=== PATIENT | female | born 1965 | race Caucasian/White ===

== ENCOUNTER → 2023-07-11 | Outpatient (CLI) | payer OTHER, SELFPAY ==
[2023-07-14 13:07] LABS: HPV APTIMA, High Risk Negative (Negative)
== END | disposition home or self-care (01) ==
LOC: LABSPEC 10:24
PROVIDERS: PCP Family Medicine; Referring Provider Obstetrics & Gynecology; Visit Provider Obstetrics & Gynecology
DX: Z12.4 Encounter for screening for malignant neoplasm of cervix (principal)
CPT/HCPCS: 87624; 88175; G0145

== ENCOUNTER → 2023-07-18 | Outpatient (CLI) | payer OTHER, SELFPAY ==
--- NOTE | 2023-07-18 07:41 | BI_ITS ---
MAMMOGRAPHY - BILATERAL SCREENING REASON FOR EXAM: Female, 58 years old. Routine annual screening examination. PERTINENT HISTORY: Non-contributory. TECHNIQUE: Digital bilateral breast tc (3D mammographic acquisition) in the CC and MLO projections. 2-D mediolateral oblique (MLO) and craniocaudad (CC) views of both breasts were obtained. CAD: Full Field Digital Mammography with Computer Added Detection was performed. COMPARISON: Comparison is made with prior examination dated January 04, 2022. FINDINGS: Breast Composition: The breasts are extremely dense, which lowers the sensitivity of mammography. There are no dominant masses or suspicious calcifications. No other significant abnormalities are identified. There has been no significant change since the prior study. BI/SCRN MAMM (CAD)W/TC BILAT IMPRESSION: Stable bilateral screening mammogram. Yearly follow-up mammogram recommended. (A) ASSESSMENT CATEGORY: BIRADS Category 1: Negative. A letter regarding these results will be sent to the patient by the facility within 30 days. Approximately 10% of breast cancers are not detected by mammography. A normal mammogram should not delay biopsy of a clinically suspicious abnormality. [id number] Electronically Signed: Francis Delgado MD at 14:19 EST ,
--- OUTSIDE RECORDS SUMMARY | 2023-07-18 08:01 | XMS RPT_ITS | CCD ---
Author Name Unknown Address [address] [place] [address] Organization [facility] Care Team Providers Care Sales Marketing Coordinator Name Role Phone Artur Avilez Unavailable Unavailable Artur Avilez Unavailable Unavailable Amari Mccollum Unavailable Unavailable ARTUR AVILEZ N Unavailable Unavailable Anmol Tabor Unavailable Unavailable Artur Avilez N Unavailable Unavailable Unknown, Referring Provider Unavailable Unav ailable Derek Fontenot MD Unavailable [place], Mallorie Unavailable Unavailabl e Neo, Mallorie C Unavailable Unavaila ble Artur Avilez N Unavailable Unavailable [place], Mallorie C Unavailable Unavailable Unavailable Neo DO, Mallorie C Primary Care Provider Neo DO, Mallorie C Unavailable [phone] Nayla Lizarraga MD Unavailable NEO MALLORIE C Attending Unavaila ble NEO MALLORIE C Primary Care Unavaila ble Allergies Allergy Classification Reported Allergen(s) Allergy Type Date of Onset Reaction(s) Facility (1 source) Seasonal allergy; Translations: [SEASONAL] allergy to substance 0 [facility] Work Phone: Medications Current Medications Medication Drug Class(es) Dates Sig (Normalized) Sig (Original) DULoxetine 30 mg delayed release oral capsule (5 sources) Serotonin and Norepinephrine Reuptake Inhibitor Start: 12-03-2020 End: 10-26-2022 take 1 capsule by mouth twice daily DULoxetine (Cymbalta) [address] capsule Take 1 capsule (30 mg) by mouth 2 times a day. 0 12/03/2020 10/26/2022 Discontinued (Therapy completed) Completed/Discontinued Medications Medication Drug Class(es) Dates Sig (Normalized) Sig (Original) augmented betamethasone 0.5 mg/ml topical cream (1 source) Corticosteroid Start: 01-29-2019 Betamethasone Dipropionate Aug 0.05 % External Cream APPLY AND RUB IN A THIN FILM TO AFFECTED AREAS TWICE DAILY.(AM AND PM). Quantity: 30 Refills: 0 Anmol Tabor MD Start : 29-Jan-2019 Active Problems Active Problems Problem Classification Problem Date Documented Da te Episodic/Chronic Diseases of white blood cells (6 sources) Leukopenia; Translations: [Leukocytopenia, unspecified] Onset: 10-25-2022 10-25-2022 Chronic Disorders of lipid metabolism (9 sources) Hyperlipidemia; Translations: [Other and unspecified hyperlipidemia] Onset: 10-25-2022 10-26-2022 Chronic Malaise and fatigue (7 sources) Fatigue; Translations: [Other malaise and fatigue] Episodic Mood disorders (2 sources) Major depressive disorder, single episode, unspecified; Translations: [Major depressive disorder, single episode, unspecified] Onset: 05-31-2017 Osteoarthritis (14 sources) Primary osteoarthritis, right hand; Translations: [Degenerative joint disease of hand] Onset: 01-17-2020 01-17-2020 Chronic Other and unspecified benign neoplasm (9 sources) History of polyp of colon; Translations: [Personal history of colonic polyps] Onset: 10-25-2022 10-26-2022 Episodic Other and unspecified benign neoplasm (2 sources) Personal history of colonic polyps; Translations: [Personal history of colonic polyps] Onset: 10-25-2022 Episodic Other connective tissue disease (6 sources) Muscle pain; Translations: [Myalgia and myositis, unspecified] Episodic Other connective tissue disease (1 source) Pain of left hand; Translations: [Pain in left hand] 10-26-2022 Episodic Other connective tissue disease (2 sources) Pain in left hand; Translations: [Pain in left hand] Onset: 10-26-2022 Episodic Other non-epithelial cancer of skin (1 source) Basal cell carcinoma of skin; Translations: [Basal cell carcinoma of skin, unspecified] Onset: 10-26-2022 10-26-2022 Episodic Other skin disorders (3 sources) Acne vulgaris; Translations: [Other acne] Episodic Other skin disorders (1 source) Acne; Translations: [Acne vulgaris] Onset: 10-25-2022 10-25-2022 Episodic Other upper respiratory disease (2 sources) Allergic rhinitis, unspecified; Translations: [Allergic rhinitis, unspecified] Onset: 05-31-2017 Chronic Residual codes; unclassified (7 sources) Past history of procedure; Translations: [Other specified personal history presenting hazards to health] Episodic Past or Other Problems Problem Classification Problem Date Documented Date Episodic/Chronic Allergic reactions (8 sources) Contact dermatitis due to Genus Toxicodendron; Translations: [Contact dermatitis and other eczema due to plants [except food]] Resolved: 02-06-2020 Episodic Anxiety disorders (10 sources) Anxiety disorder, unspecified; Translations: [Mixed anxiety and depressive disorder] Onset: 05-31-2017 Resolved: 10-26-2022 10-26-2022 Chronic Genitourinary symptoms and ill-defined conditions (2 sources) Frequency of micturition; Translations: [Frequency of micturition] Onset: 05-31-2017 Episodic Immunizations and screening for infectious disease (7 sources) Anti-nuclear factor positive; Translations: [Other and unspecified nonspecific immunological findings] Resolved: 06-30-2020 Episodic Mood disorders (5 sources) Moderate major depression, single episode; Translations: [Major depressive affective disorder, single episode, moderate] Onset: 10-25-2022 Resolved: 10-26-2022 10-26-2022 Chronic Residual codes; unclassified (8 sources) Sleep disorder; Translations: [Sleep disturbance, unspecified] Onset: 10-25-2022 Resolved: 10-25-2022 10-25-2022 Episodic Unclassified (2 sources) Family history of ischemic heart disease and other diseases of the circulatory system; Translations: [Family hx of ischem heart dis and oth dis of the circ sys] Onset: 05-31-2017 Episodic Unclassified (1 source) Problem Unclassified (2 sources) Cancer cervix screening status; Translations: [Screening for cervical cancer] Unclassified (1 source) Patient encounter status; Translations: [Screening for hyperlipidemia] Urinary tract infections (11 sources) Acute cystitis with hematuria; Translations: [Urinary tract infectious disease] Onset: 05-31-2017 Resolved: 02-06-2020 Episodic NEGATED: Highlighted row has not occurred!Residual codes; unclassified (7 sources) Disease Episodic Results Test Name Value Interpretation Reference Range Facil ity Vital Signs Date Time Vital Sign Value Performing Clinician Facility 10-26-2022 08:33-0400 Body height 167.6 cm Mallorie Nationhael DO Work Phone: [facility] 10-26-2022 08:33-0400 Body mass index (BMI) [Ratio] 22.97 kg/m2 Mallorie Buenomichael DO Work Phone: [facility] 10-26-2022 08:33-0400 Body temperature 98.8 [degF] Mallorie Nationhael DO Work Phone: [facility] 10-26-2022 08:33-0400 Body weight 64.55 kg Mallorie Nationhael DO Work Phone: [facility] 10-26-2022 08:33-0400 Diastolic blood pressure 61 mm[Hg] Mallorie Nationhael DO Work Phone: [facility] 10-26-2022 08:33-0400 Heart rate 86 /min Mallorie Nationhael DO Work Phone: [facility] 10-26-2022 08:33-0400 Respiratory rate 14 /min Mallorie Nationhael DO Work Phone: [facility] 10-26-2022 08:33-0400 SaO2% (BldA) [Mass fraction] 98 % Mallorie Nationhael DO Work Phone: [facility] 10-26-2022 08:33-0400 Systolic blood pressure 89 mm[Hg] Mallorie Neo DO Work Phone: [facility] 12-03-2020 14:31-0400 Body mass index (BMI) [Ratio] 19.96 kg/m2 Mallorie Stafford Neo Work Phone: [facility] Work Phone: 12-03-2020 14:31-0400 Body surface area Derived from formula 1.71 m2 Mallorie C Neo Work Phone: [facility] Work Phone: 12-03-2020 14:31-0400 Body temperature 97.5 [degF] Mallorie C Neo Work Phone: [facility] Work Phone: 12-03-2020 14:31-0400 Body weight 59.54 kg Mallorie C [place] Work Phone: [facility] Work Phone: 12-03-2020 14:31-0400 Diastolic blood pressure 62 mm[Hg] Mallorie C [place] Work Phone: [facility] Work Phone: 12-03-2020 14:31-0400 Heart rate 65 /min Mallorie C [place] Work Phone: [facility] Work Phone: 12-03-2020 14:31-0400 Respiratory rate 14 /min Mallorie C [place] Work Phone: [facility] Work Phone: 12-03-2020 14:31-0400 SaO2% (BldA) [Mass fraction] 97 % Mallorie C Neo Work Phone: [facility] Work Phone: 12-03-2020 14:31-0400 Systolic blood pressure 107 mm[Hg] Mallorie C [place] Work Phone: [facility] Work Phone: 01-29-2019 13:05-0400 BMI (Body Mass Index) 23.49 kg/m2 Anmol Tabor [facility] Work Phone: 01-29-2019 13:05-0400 Body Temperature 98.1 [degF] Anmol Tabor [facility] Work Phone: 01-29-2019 13:05-0400 Body weight 68.04 kg Anmol Tabor [facility] Work Phone: 01-29-2019 13:05-0400 BP Diastolic 76 mm[Hg] Anmol Tabor [facility] Work Phone: 01-29-2019 13:05-0400 BP Systolic 112 mm[Hg] Anmol Tabor [facility] Work Phone: 01-29-2019 13:05-0400 BSA (Body Surface Area) 1.79 m2 Anmol Tabor [facility] Work Phone: 01-29-2019 13:05-0400 Height 170.18 cm Anmol Tabor [facility] Work Phone: 01-29-2019 13:05-0400 Pulse (Heart Rate) 55 /min Anmol Tabor [facility] Work Phone: 01-29-2019 13:05-0400 Pulse Oximetry 99 % Anmol Tabor [facility] Work Phone: 01-29-2019 13:05-0400 Respiratory Rate 16 /min Anmol Tabor [facility] Work Phone: NEGATED: Highlighted [id number] 07:45-0400 BMI (Body Mass Index) 21.06 kg/m2 Carmita Gamble LPN [facility] Work Phone: NEGATED: Highlighted [id number] 07:45-0400 Body weight 59.88 kg Carmita Gamble LPN [facility] Work Phone: NEGATED: Highlighted [id number] 07:45-0400 Body weight 60 kg Carmita [place] OFFICE CASHIER [facility] Work Phone: NEGATED: Highlighted [id number] 07:45-0400 Height 168.91 cm Carmita Gamble LPN [facility] Work Phone: NEGATED: Highlighted [id number] 07:45-0400 Height 169 cm Carmita Gamble LPN [facility] Work Phone: Encounters Encounter Date Encounter Type Care Provider Facility Start: 10-26-2022 End: 10-26-2022 ambulatory MALLORIE LARSON [facility] Amb[facility] Start: 10-26-2022 End: 10-26-2022 Encounter for general adult medical examination without abnormal findings MALLORIE Stafford NEO [facility] Start: 10-26-2022 End: 10-26-2022 Patient encounter procedure Mallorie Larson DO Work Phone: [facility] Work Phone: Start: 10-26-2022 End: 10-26-2022 Periodic preventive med est patient 40-64yrs Mallorie Larson DO Work Phone: [facility] Procedures Date Procedure Procedure Detail Performing Clinician Start: 01-04-2022 Mammography Mallorie Larson DO Work Phone: Start: 06-24-2020 Lipid 1996 panel - S ishmael or Plasma Mallorie Larson DO Work Phone: Start: 05-27-2020 Follow-up visit Start: 04-09-2020 25 hydroxy includes fractions if performed Mallorie Larson Start: 04-09-2020 Antinuclear antibodi es chanel Mallorie Bowenl Start: 04-09-2020 Blood count complete auto&auto difrntl wbc Mallorie Larson Start: 04-09-2020 C-reactive protein Varsha erannie Bowenl Start: 04-09-2020 Comprehensive metabo lic 2000 panel Mallorie Bowenl Start: 04-09-2020 Creatine kinase total K rosangela Nationhael Start: 04-09-2020 Lipid panel Mallorie Larson Start: 04-09-2020 Sedimentation rate r bc automated Mallorie Larson Start: 04-09-2020 TSH WITH REFLEX TO F REE T4 IF ABNORMAL Mallorie Larson Start: 01-17-2020 End: 01-17-2020 Blood pressure screening not performed - reason not given Derek Fontenot MD Work Phone: Start: 01-17-2020 End: 01-17-2020 BMI documented within normal parameters - no follow-up plan is required Derek Fontenot MD Work Phone: Start: 01-17-2020 End: 01-17-2020 Osteoarthritis symptoms and functional status not assessed Derek Fontenot MD Work Phone: Start: 01-17-2020 End: 01-17-2020 Pain assessment documented as positive - follow-up documented Derek Fontenot MD Work Phone: Start: 01-17-2020 End: 01-17-2020 Radex fingr minimum 2 views Derek Fontenot MD Work Phone: Start: 01-17-2020 End: 01-17-2020 Tobacco non-user Deerk Fontenot MD Work Phone: Start: 01-16-2020 End: 01-17-2020 Documentation of current medications Derek Fontenot MD Work Phone: Colonoscopy Mallorie [place] Dilation and curettage Melissa Larson NEGATED: Highlighted rowStart: 01-17-2020 End: 01-17-2020 Documentation of current medications Carmita Gamble LPN Plan of Treatment Date Care Activity Detail Author Start: 02-14-2029 DTaP/Tdap/Td Vaccine s (3 - Td or Tdap) DTaP/Tdap/Td Vaccines (3 - Td or Tdap) [facility] Start: 06-24-2025 Lipid panel Lipid Panel [facility] Start: 02-25-2023 Influenza vaccination Influenz a Vaccine (Season Ended) [facility] Start: 01-04-2023 Screening for malign ant neoplasm of breast Mammogram [facility] Start: 10-26-2022 End: 10-27-2023 25-hydroxyvitamin D3 [Mass/volume] in Serum or Plasma Vitamin D, Total Lab Routine Annual physical exam Expected: 10/26/2022 (Approximate), Expires: 10/27/2023 [facility] Work Phone: Immunizations Immunization Date Immunization Notes Care Provider Fa fredis 07-01-2020 zoster vaccine recombinant; Translations: [Shingrix 50 MCG Intramuscular Suspension Reconstituted] Mallorie Larson Work Phone: [facility] Work Phone: Payers Date Payer Category Payer Private Health Insurance 2015 Private Health Insurance [id number] 1965 Unknown [id number] Unknown [employer] Social History Date Type Detail Facility Start: 01-17-2020 End: 01-17-2020 Assertion Unknown if ever smoked [facility] Work Phone: Start: 10-26-2022 Never smoker Never smoker [facility] Work Phone: Functional Status Date Assessment Result Facility NEGATED: Highlighted row Functional performance Functional status health issues are not documented [facility] Work Phone: Mental Status Date Assessment Result Facility NEGATED: Highlighted row Cognitive function [Interpretation] Cognitive status health issues are not documented [facility] Work Phone: Evaluation + Plan note 10-26-2022 Assessment & Plan Note - Mallorie Larson DO - 10/26/2022 8:57 AM EDT Note Date & Type Note Facility 10-26-2022 Evaluation + Plan note Associated Problem(s): BCC (basal cell carcinoma of skin) Continue follow up with Dr. Lizarraga for skin examinations [facility] Work Phone: Note 10-26-2022 Assessment & Plan Note - Mallorie Larson DO - 10/26/2022 8:57 AM EDTAssessment & Plan Note - Mallorie Larson DO - 10/26/2022 8:56 AM EDT Note Date & Type Note Facility 10-26-2022 Miscellaneous Notes Associated Problem(s): BCC (basal cell carcinoma of skin) Continue follow up with Dr. Lizarraga for skin examinations Associated Problem(s): Osteoarthritis of hand Discussed ibuprofen 800 mg three times daily as needed Voltaren gel could also be used Xray ordered Consider orthopedic hand referral if symptoms worsen Associated Problem(s): History of colon polyps Schedule colonoscopy documented in this encounter [facility] Work Phone: Evaluation + Plan note 10-26-2022 Assessment & Plan Note - Mallorie Larson DO - 10/26/2022 8:56 AM EDT Note Date & Type Note Facility 10-26-2022 Evaluation + Plan note Associated Problem(s): Osteoarthritis of hand Discussed ibuprofen 800 mg three times daily as needed Voltaren gel could also be used Xray ordered Consider orthopedic hand referral if symptoms worsen [facility] Work Phone: Evaluation + Plan note 10-26-2022 Assessment & Plan Note - Mallorie Larson DO - 10/26/2022 8:56 AM EDT Note Date & Type Note Facility 10-26-2022 Evaluation + Plan note Associated Problem(s): History of colon polyps Schedule colonoscopy [facility] Work Phone: History of Present illness Narrative 10-26-2022 Mallorie Larson DO - 10/26/2022 8:30 AM EDT Note Date & Type Note Facility 10-26-2022 History of Present illness Narrative Subjective Patient ID: Mey Shell is a 57 y.o. female who presents for Annual Exam and Hand Pain (Both hands- but more in the left hand than the right- this has been going on for quite a few months ). HPI The patient presents for her annual wellness exam. 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 Lizarraga and Dr. Goldstein Review of Systems Constitutional: Negative for chills, fatigue and fever. HENT: Negative for congestion, ear pain and sore throat. Eyes: Negative for visual disturbance. Respiratory: Negative for cough and shortness of breath. Cardiovascular: Negative for chest pain, palpitations and leg swelling. Gastrointestinal: Negative for abdominal pain, constipation, diarrhea, nausea and vomiting. Genitourinary: Negative. Musculoskeletal: Positive for arthralgias. Skin: Negative for rash. Neurological: Negative for dizziness, weakness, numbness and headaches. Psychiatric/Behavioral: Negative. Objective BP 89/61 (BP Location: Right arm, Patient Position: Sitting, BP Cuff Size: Small adult) Pulse 86 Temp 37.1 C (98.8 F) (Temporal) Resp 14 Ht 1.676 m (5' 6 ) Wt 64.5 kg (142 lb 4.8 oz) SpO2 98% BMI 22.97 kg/m Physical Exam Constitutional: Well developed, well nourished, alert and in no acute distress. Head and Face: Normocephalic, atraumatic. Eyes: Normal external exam. Pupils equally round and reactive to light with normal accommodation and extraocular movements intact. ENT: External inspection of ears normal, tympanic membranes visualized and normal. Nasal mucosa, septum, and turbinates normal. Oral mucosa moist, oropharynx clear. Neck: Supple, no lymphadenopathy or masses. Thyroid not enlarged, no palpable nodules. Cardiovascular: Regular rate and rhythm, normal S1 and S2, no murmurs, gallops, or rubs. Radial pulses normal. No peripheral edema. No carotid bruits. Pulmonary: No respiratory distress, lungs clear to auscultation bilaterally. No wheezes, rhonchi, rales. Abdomen: Soft, nontender, nondistended, normal bowel sounds. No masses palpated. Musculoskeletal: Gait normal. Muscle strength/tone normal of all 4 extremities. Normal range of motion of all extremities. Hands: OA changes noted to DIP joints bilaterally. Joints without swelling. No erythema. Sensation intact. Radial pulses intact. Strength equal and symmetric bilaterally. Lebron test negative. Skin: Warm, well perfused, normal skin turgor and color, no lesions or rashes noted. Neurologic: Cranial nerves II-XII grossly intact. Sensation normal bilaterally. Psychiatric: Mood calm and affect normal. Assessment/Plan Problem List Items Addressed This Visit Digestive History of colon polyps Schedule colonoscopy Relevant Orders Referral to Gastroenterology Musculoskeletal Osteoarthritis of hand Discussed ibuprofen 800 mg three times daily as needed Voltaren gel could also be used Xray ordered Consider orthopedic hand referral if symptoms worsen Other Hyperlipidemia Relevant Orders Lipid Panel Other Visit Diagnoses Annual physical exam - Primary Relevant Orders CBC and Auto Differential Comprehensive Metabolic Panel Vitamin D, Total Follow Up In [facility] - PCP Pain of left hand Relevant Orders XR hand left 3+ views Mallorie Larson DO 10/26/2022 documented in this encounter [facility] Work Phone: Instructions 10-26-2022 Patient Instructions Note Date & Type Note Facility 10-26-2022 Instructions Mallorie Larson DO - 10/26/2022 8:30 AM EDT Recommendations for women annual wellness exam: Make sure screenings for cervical, breast, and colon cancer are up to date if applicable- pap smears age 21-65, discuss mammogram starting at age 40, colonoscopy at age 45, earlier if positive family history for breast or colon cancer Screen for osteoporosis with DXA bone scan starting at age 65 or sooner if risk factors present (half-way steroid use, smoking, heavy alcohol use, history of fracture, rheumatoid arthritis, low body weight, family history of hip fracture) Screening for lung cancer with low-dose CT in all adults age 50-80 who have a 20 pack-year smoking history and currently smoke or have quit within the past 15 years Follow a healthy diet (Dash diet, Mediterranean diet) Exercise 150 min/wk Maintain healthy weight (BMI < 25) Do not smoke Alcohol in moderation (up to 1 drink/day) Get enough sleep (7-8 hours/night) Make sure immunizations are up to date (influenza, pneumococcal, Tdap, shingles if age > 50) Postmenopausal women or women with osteoporosis need minimum 1,200 mg calcium and 800 IU vitamin D daily Talk to your physician if you have concerns about depression or anxiety Visit dentist twice yearly Return anytime for shingles shot #2 Ibuprofen 800 mg max 3 times daily for pain Take with food documented in this encounter [facility] Work Phone: History of Present illness Narrative 09-03-2020 Note Date & Type Note Facility 09-03-2020 History of Present illness Narrative Here to discuss fatigue -Reports generalized muscle soreness, trouble sleeping, worsening anxiety and depression past few monthsAnxiety is worse- worries about everything- work, her mom, deathMarried1 daughterHas been on prozac for past few monthsPreviously was on zoloftEnergy level lowNo motivation to do things at homeCrying easilyAlso irritableVery tiredCycle perpetuatesSleep is ok, only getting 3-4 hours per night most nights due to volume of things she has to do for home and work and caring for her mom [place] [facility] [place] - feels like its more than she should - arms and legsFibromyalgia screening was neg last viist+passive suicidal thoughts but no active ones and no plan. her dogs keep her from ever attempting self harm.Insomnia-Home sleep study was neg Feb 2020; she was going to do in lab study but reports it wasn't covered by insurance. Dr. Carter- saw him once and needs to follow back upLast visit she reported body soreness following exercise but denies generalized body soreness or prior diagnosis fibromyalgia [facility] Work Phone: Evaluation note Note Date & Type Note Facility documented in this encounter [facility] Work Phone: Reason for referral (narrative) Consultation (Routine) - Authorized Note Date & Type Note Facility Referral ID Status Reason Start Date Expiration Date V isits Requested Visits Authorized [id number] Authorized 10/26/2022 04/24/2023 1 1 * Imaging (Routine) - Authorized Specialty Diagnoses / Procedures Referred By Lisa argueta Referred To Contact Radiology Diagnoses Pain of left hand Procedures XR hand left 3+ views Mallorie Larson DO [address] [place] [address] Referral ID Status Reason Start Date Expiration Date Visits Requested Visits Authorized [id number] Authorized Perform Procedure 10/26/2022 04/24/2023 1 1 * Consultation (Routine) - Authorized Specialty Diagnoses / Procedures Referred By Lisa argueta Referred To Contact Gastroenterology Diagnoses History of colon polyps Procedures [place] OFFICE/OUTPATIENT NEW HIGH MDM 60-74 MINUTES Mallorie Larson DO [address] [place] [address] Referral ID Status Reason Start Date Expiration Date Visits Requested Visits Authorized [id number] Authorized Specialty Services Required 10/26/2022 04/24/2023 1 1 [facility] Work Phone: Summary Purpose Family History No Family History Records Found Mother Name Dates Details Family history of eosinophil ic granulomatosis with polyangiitis (EGPA)(V17.49, Z82.69) Status:Active Father Name Dates Details No pertinent family history( V49.89, Z78.9) Status:Active Mother Name Dates Details Family history of eosinophil ic granulomatosis with polyangiitis (EGPA)(V17.49, Z82.69) Status:Active Father Name Dates Details No pertinent family history( V49.89, Z78.9) Status:Active Unknown Family Member Name Dates Details No pertinent family history: Father(V49.89, Z78.9) Status:Active Family history of eosinophil ic granulomatosis with polyangiitis (EGPA): Mother(V17.49, Z82.69) Status:Active Unknown Family Member Name Dates Details No pertinent family history: Father(V49.89, Z78.9) Status:Active Family history of eosinophil ic granulomatosis with polyangiitis (EGPA): Mother(V17.49, Z82.69) Status:Active Unknown Family Member Name Dates Details No pertinent family history: Father(V49.89, Z78.9) Status:Active Family history of eosinophil ic granulomatosis with polyangiitis (EGPA): Mother(V17.49, Z82.69) Status:Active Unknown Family Member Name Dates Details No pertinent family history: Father(V49.89, Z78.9) Status:Active Family history of eosinophil ic granulomatosis with polyangiitis (EGPA): Mother(V17.49, Z82.69) Status:Active Unknown Family Member Name Dates Details No pertinent family history: Father(V49.89, Z78.9) Status:Active Family history of eosinophil ic granulomatosis with polyangiitis (EGPA): Mother(V17.49, Z82.69) Status:Active Advance Directives No Advanced Directives Records FoundNo Advanced Directives Records FoundThere may be information available, but it has not been provided by the sender.No Advanced Directives Records FoundNo Advanced Directives Records FoundNo Advanced Directives Records FoundNo Advanced Directives Records Found Chief Complaint Chief Complaint Description Start Date right small finger pain Preliminary chief co mplaint data, not yet signed by the author as of Instructions Instruction Description Start Date Completed Assessments There may be information available, but it has not been provided by the sender. Review of System There may be information available, but it has not been provided by the sender. History of Present Illness There may be information available, but it has not been provided by the sender. Additional Source Comments INFORMATION SOURCE (unrecogn ized section and content) DATE CREATED AUTHOR AUTHOR'S ORGANIZ ATION 12/29/2017 [facility] DATE CREATED AUTHOR AUTHOR'S ORGANIZ ATION 03/08/2020 [facility] DATE CREATED AUTHOR AUTHOR'S ORGANIZ ATION 12/05/2020 [employer] DATE CREATED AUTHOR AUTHOR'S ORGANIZ ATION 01/13/2022 [facility] DATE CREATED AUTHOR AUTHOR'S ORGANIZ ATION 10/28/2022 [facility] Ambulatory Reason for Visit (unrecogniz ed section and content) Reason Comments Annual Exam Hand Pain Both hands- but more in the left hand than the right- this has been going on for quite a few months Care Teams (unrecognized sec tion and content) FOR RECORDS PERTAINING TO PATIENTS WHO ARE OR HAVE BEEN ENROLLED IN A CHEMICAL DEPENDENCY/SUBSTANCEABUSE PROGRAM, SOME INFORMATION MAY BE OMITTED. This clinical summary was aggregated from multiple sources. Caution should be exercised in using it in the provision of clinical care. This summary normalizes information from multiple sources, and as a consequence, information in this document may materially change the coding, format and clinical context of patient data. In addition, data may be omitted in some cases. CLINICAL DECISIONS SHOULD BE BASED ON THE PRIMARY CLINICAL RECORDS. [facility] [employer] provides no warranty or guarantee of the accuracy or completeness of information in this document.
== END | disposition home or self-care (01) ==
LOC: OPBI 07:41
PROVIDERS: PCP Family Medicine; Referring Provider Obstetrics & Gynecology; Visit Provider Obstetrics & Gynecology
DX: Z12.31 Encounter for screening mammogram for malignant neoplasm of breast (principal)
CPT/HCPCS: 77063; 77067

== ENCOUNTER → 2024-07-30 | Outpatient (CLI) | payer OTHER, SELFPAY ==
--- NOTE | 2024-07-30 07:50 | BI_ITS ---
PROCEDURE: July 18, 2023. REASON FOR EXAM: F, Age 59 y/o, no family history. Routine mammographic follow-up. TECHNIQUE: Bilateral screening digital breast tomosynthesis with 2D and 3D images. Computer aided detection. COMPARISON: Prior exam(s) dating back to July 18, 2023.. FINDINGS: The breasts are extremely dense which lowers the sensitivity of mammography. Stable examination. No suspicious masses, areas of developing architectural distortion, or suspicious calcifications. BI/SCRN MAMM (CAD)W/TC BILAT IMPRESSION: BI-RADS 1: NEGATIVE. RECOMMEND ANNUAL MAMMOGRAPHIC SCREENING. Follow-up code: Routine Follow-up The patient will be notified of the results by letter. Reading Location: [place] [id number]
== END | disposition home or self-care (01) ==
LOC: OPBI 07:48
PROVIDERS: PCP Family Medicine; Referring Provider Obstetrics & Gynecology; Visit Provider Obstetrics & Gynecology
DX: Z12.31 Encounter for screening mammogram for malignant neoplasm of breast (principal)
CPT/HCPCS: 77063; 77067

== ENCOUNTER → 2024-12-07 | Outpatient (CLI) | payer OTHER, SELFPAY ==
[2024-12-07 12:36] LABS: Absolute Lymphocyte Count 1.02 X10^3/uL (0.83-4.51); Absolute Neutrophil Count 3.9 X10^3/uL (2.0-7.7); Basophil# 0.02 X10^3/uL; Basophil% 0.4 % (0-1); Eosinophil# 0.09 X10^3/uL; Eosinophils% 1.7 % (0-5); Hematocrit 38.5 % (37-47); Hemoglobin 12.8 g/dL (12.0-15.0); Lymphocyte # 1.02 X10^3/ul (0.83-4.51); Lymphocyte % 18.9 % (19-41); Mean Corp Hgb Conc 33.2 g/dL (32-36); Mean Corpuscular Hgb 30.7 pg (27.0-32.0); Mean Corpuscular Volume 92.3 fL (81-99); Mean Platelet Vol. 10.7 fl (6.2-12.0); Monocyte# 0.38 X10^3/uL; NRBC Flagged by Analyzer 0 % (0-5); Neutrophil # 3.88 X10^3/uL (2.7-7.7); Neutrophil % 71.8 % (47-70); Platelet Count 214 K/mm3 (150-450); RBC Distribution Width CV 11.9 % (11.6-14.6); RBC Distribution Width SD 40.1 fl (35.1-43.9); Red Blood Count 4.17 M/mm3 (4.2-5.4); White Blood Count 5.4 K/mm3 (4.4-11.0)
[2024-12-07 14:32] LABS: Cholesterol 183 mg/dL (<=200); High Density Lipoprotein 62 mg/dL; Low Density Lipoprotein Calc. 107 mg/dL; Triglycerides 72 mg/dL; Very Low Density Lipoprotein 14 mg/dL (5-40); Vitamin D,25 Hydroxy 28.3 ng/mL (30-100); cholesterol:hdl ratio screen 2.98
[2024-12-07 14:46] LABS: ALB/GLOB Ratio 1.6 RATIO (0.9-2.4); AST(SGOT) 19 U/L (<=31); Alanine Aminotransfer ALT/SGPT 16 U/L (<=34); Albumin, Serum 4.5 g/dL (3.5-5.0); Alkaline Phosphatase 59 U/L (35-104); Anion Gap 11 (5-15); BUN 21 mg/dL (4-19); Calcium,Total 9.3 mg/dL (7.6-11.0); Carbon Dioxide 25.2 mmol/L (21.0-32.0); Chloride 105 mmol/L (98-108); EST Glomerular Filtration Rate 87 (>60); Globulin 2.8 g/dL (2.2-4.2); Glucose 75 mg/dL (70-99); Protein, Total 7.2 g/dL (5.9-8.4); Sodium Level 142 mmol/L (133-145); Total Bilirubin 0.46 mg/dL (0.00-1.30)
== END | disposition home or self-care (01) ==
PROVIDERS: Obstetrics & Gynecology; PCP Family Medicine; Referring Provider Nurse Practitioner Family; Visit Provider Nurse Practitioner Family
DX: Z13.29 Encounter for screening for other suspected endocrine disorder (principal); R53.83 Other fatigue; N95.1 Menopausal and female climacteric states; Z13.220 Encounter for screening for lipoid disorders
CPT/HCPCS: 36415; 80053; 80061; 82306; 84439; 84443; 85025